=== PATIENT | male | born 1955 | race Two or more races ===

== ENCOUNTER 2017-07-17 13:43 | Inpatient (IN) | payer MEDICAID, OTHER ==
[~2017-07-17] VITALS: Ht 175.3 cm; Wt 101.6 kg
[2017-07-17] MEDS ORDERED: SODIUM CHLORIDE 0.9% 1,000 ML IV ONE ×2 (15:58)
[2017-07-17 17:31] LABS: Basophils # (auto) 0.1 uL; Basophils % (auto) 0.4 % (0.0-2.0); Eosinophils # (auto) 0 uL; Hematocrit 46.8 % (41.0-53.0); Hemoglobin 15.2 g/dL (13.5-17.5); Lymphocytes % (auto) 13.2 % (10.0-50.0); Mean Corpuscular Hemoglobin 31.2 pg (28.0-32.0); Mean Corpuscular Hgb Conc. 32.5 g/dL (32.0-36.0); Mean Corpuscular Volume 95.9 fL (80.0-100.0); Monocytes # (auto) 1.3 uL; Monocytes % (auto) 8.5 % (0.0-12.0); Neutrophils # (auto) 11.5 uL; Neutrophils % (auto) 77.9 % (37.0-80.0); Platelet Count (auto) 245 10^3/uL (140-450); Red Blood Cells 4.88 10^6/uL (4.5-5.90); Red Cell Distribution Width 13.1 % (11.8-14.3); White Blood Cell 14.8 10^3/uL (4.4-10.8)
[2017-07-17 17:44] LABS: Anion Gap 10 (5-15); Carbon Dioxide 21 mmol/L (21-32); Chloride 105 mmol/L (98-107); Potassium 3.5 mmol/L (3.5-5.1); Sodium 136 mmol/L (136-145)
[2017-07-17 17:45] LABS: Alanine Aminotransferase 37 U/L (16-61); Albumin 3.3 g/dL (3.4-5.0); Alkaline Phosphatase 123 U/L (45-117); Aspartate Aminotransferase 20 U/L (15-37); BUN/Creatinine Ratio 15.1; Bilirubin, Total 0.5 mg/dL (0.2-1.0); Blood Urea Nitrogen 14 mg/dL (7-18); GFR African American 106 mL/min; GFR Non-African American 88 mL/min; Glucose 118 mg/dL (74-106); Total Protein 7.4 g/dL (6.4-8.2)
[2017-07-17 17:46] LABS: Amylase 36 U/L (25-115); Lipase 230 U/L (73-393)
[2017-07-17 19:17] LABS: Urine Bacteria NONE SEEN /hpf (None Seen); Urine Blood Negative /uL (Negative); Urine Hyaline Cast FEW /lpf (0 - 2); Urine Mucus FEW (None Seen); Urine WBC 2 /hpf (0 - 3)
[2017-07-17] MEDS ORDERED: HYDROcodone-ACET 5/325MG TAB PO PRN (19:30)
[2017-07-17] MEDS ORDERED: ACETAMINOPHEN 325 MG TAB PO PRN (19:30)
[2017-07-17] MEDS ORDERED: TEMAZEPAM 15 MG CAP PO PRN (19:30)
[2017-07-17] MEDS ORDERED: ONDANSETRON HCL 4 MG/2 ML VIAL IV PRN (19:30)
[2017-07-17] MEDS ORDERED: ALPRAZolam 0.25 MG TAB PO PRN (19:30)
[2017-07-17] MEDS ORDERED: DEXTROSE (50%) 50ML SYRG IV PRN (19:30)
[2017-07-17] MEDS ORDERED: MORPHINE SULF INJ 2 MG/ML SYRINGE 1ML IV PRN (19:30)
[2017-07-17] MEDS ORDERED: cefTRIAXone 1GM/10ml IVPUSH 10 ML IV ONE (19:45)
[2017-07-17] MEDS: SODIUM CHLORIDE 0.9% 1,000 ML IV SCH (19:45)
[2017-07-17] MEDS ORDERED: cloNIDine HCL 0.1 MG TAB PO PRN (19:45)
[2017-07-17 19:57] LABS: Hematocrit 43.6 % (41.0-53.0); Hemoglobin 14.4 g/dL (13.5-17.5)
[2017-07-17] MEDS: InsuLIN REG 1unit/0.01ml Soln (100units/ml) SC SCH (22:00)
[2017-07-17] MEDS: ASCORBIC ACID 500 MG TAB PO SCH (22:06)
[2017-07-17] MEDS: PANTOPRAZOLE 40 MG/10 ML VIAL IV SCH (22:06)
[2017-07-17] MEDS: FAMOTIDINE 20 MG TAB PO SCH (22:06)
[2017-07-17] MEDS: ATORVASTATIN 20 MG TAB PO SCH (22:06)
[2017-07-17] MEDS: metroNIDAZOLE 500MG/100ML 100 ML IV SCH (22:06)
[2017-07-17] MEDS: ACCU-CHEK COMFORT CURVE STRIP VI SCH (22:07)
[2017-07-18] VITALS (8 sets, daily range): BP systolic 123–145; BP diastolic 69–95
[2017-07-18] MEDS ORDERED: ALPR0.25 PO (03:27)
[2017-07-18] MEDS ORDERED: METF-370 PO (03:27)
[2017-07-18] MEDS ORDERED: HYDR-3546 OR (03:27)
[2017-07-18] MEDS ORDERED: ATOR20TA PO (03:27)
[2017-07-18] MEDS ORDERED: ENA2.5T GT (03:27)
[2017-07-18] MEDS: metroNIDAZOLE 500MG/100ML 100 ML IV SCH ×3 (06:37→21:23)
[2017-07-18] MEDS: ACCU-CHEK COMFORT CURVE STRIP VI SCH ×4 (06:38→21:26)
[2017-07-18] MEDS: InsuLIN REG 1unit/0.01ml Soln (100units/ml) SC SCH ×4 (06:38→22:26)
[2017-07-18 07:00] LABS: Basophils # (auto) 0 uL; Basophils % (auto) 0.3 % (0.0-2.0); Eosinophils # (auto) 0.1 uL; Eosinophils % (auto) 0.5 % (0.0-7.0); Hematocrit 40.4 % (41.0-53.0); Hemoglobin 13.6 g/dL (13.5-17.5); Lymphocytes # (auto) 3.1 uL; Lymphocytes % (auto) 29.6 % (10.0-50.0); Mean Corpuscular Hemoglobin 31.8 pg (28.0-32.0); Mean Corpuscular Hgb Conc. 33.6 g/dL (32.0-36.0); Mean Corpuscular Volume 94.6 fL (80.0-100.0); Monocytes # (auto) 1.1 uL; Monocytes % (auto) 10.8 % (0.0-12.0); Neutrophils # (auto) 6.2 uL; Neutrophils % (auto) 58.8 % (37.0-80.0); Platelet Count (auto) 259 10^3/uL (140-450); Red Blood Cells 4.27 10^6/uL (4.5-5.90); Red Cell Distribution Width 13.1 % (11.8-14.3); White Blood Cell 10.6 10^3/uL (4.4-10.8)
[2017-07-18 07:17] LABS: INR 1.04 (0.9-1.15); Prothrombin Time 11.3 sec (9.37-12.3)
[2017-07-18 07:43] LABS: BUN/Creatinine Ratio 10.5; Potassium 4.5 mmol/L (3.5-5.1)
[2017-07-18 07:44] LABS: Albumin 2.8 g/dL (3.4-5.0); Bilirubin, Total 0.7 mg/dL (0.2-1.0); Calcium 7.7 mg/dL (8.5-10.1); Total Protein 6.3 g/dL (6.4-8.2)
[2017-07-18] MEDS: SODIUM CHLORIDE 0.9% 1,000 ML IV SCH ×3 (07:46→21:23)
[2017-07-18] MEDS: Boost Glucose Control 8 Ounces PO SCH ×3 (08:00→17:49)
[2017-07-18] MEDS: PANTOPRAZOLE 40 MG/10 ML VIAL IV SCH ×2 (10:37→21:24)
[2017-07-18] MEDS: ASCORBIC ACID 500 MG TAB PO SCH ×2 (10:37→21:24)
[2017-07-18] MEDS: cefTRIAXone 1GM/10ml IVPUSH 10 ML IV SCH (10:37)
[2017-07-18] MEDS: MULTIPLE VITAMIN TAB PO SCH (10:37)
[2017-07-18] MEDS: ENALAPRIL MALEATE 2.5 MG TAB PO SCH (10:38)
[2017-07-18] MEDS: FAMOTIDINE 20 MG TAB PO SCH (10:38)
[2017-07-18] MEDS: ZINC SULFATE 220 MG CAP PO SCH (10:38)
[2017-07-18] MEDS: ATORVASTATIN 20 MG TAB PO SCH (21:24)
[2017-07-19 05:00] VITALS: BP 131/71
[2017-07-19] MEDS: SODIUM CHLORIDE 0.9% 1,000 ML IV SCH ×3 (06:07→20:51)
[2017-07-19] MEDS: metroNIDAZOLE 500MG/100ML 100 ML IV SCH ×2 (06:07→13:55)
[2017-07-19] MEDS: InsuLIN REG 1unit/0.01ml Soln (100units/ml) SC SCH ×4 (07:00→22:00)
[2017-07-19] MEDS: ACCU-CHEK COMFORT CURVE STRIP VI SCH ×4 (07:05→23:06)
[2017-07-19 09:00] VITALS: BP 130/85
[2017-07-19] MEDS: MULTIPLE VITAMIN TAB PO SCH (10:08)
[2017-07-19] MEDS: PANTOPRAZOLE 40 MG/10 ML VIAL IV SCH ×2 (10:08→23:05)
[2017-07-19] MEDS: cefTRIAXone 1GM/10ml IVPUSH 10 ML IV SCH (10:08)
[2017-07-19] MEDS: Boost Glucose Control 8 Ounces PO SCH ×3 (10:08→17:59)
[2017-07-19] MEDS: ZINC SULFATE 220 MG CAP PO SCH (10:09)
[2017-07-19] MEDS: ASCORBIC ACID 500 MG TAB PO SCH ×2 (10:09→23:05)
[2017-07-19] MEDS: ENALAPRIL MALEATE 2.5 MG TAB PO SCH (10:09)
[2017-07-19 13:00] VITALS: BP 114/67
[2017-07-19] MEDS ORDERED: FLORASTOR (S. BOULARDII) 250 MG CAP PO ONE (15:45)
[2017-07-19 17:00] VITALS: BP 119/68
[2017-07-19 22:00] VITALS: BP 138/80
[2017-07-19] MEDS: ATORVASTATIN 20 MG TAB PO SCH (23:05)
[2017-07-20 05:00] VITALS: BP_SYST 115; BP_SYST 123; BP_DIAS 70; BP_DIAS 76
[2017-07-20] MEDS: SODIUM CHLORIDE 0.9% 1,000 ML IV SCH ×2 (05:34→14:02)
[2017-07-20] MEDS: InsuLIN REG 1unit/0.01ml Soln (100units/ml) SC SCH ×2 (05:34→11:30)
[2017-07-20] MEDS: ACCU-CHEK COMFORT CURVE STRIP VI SCH ×2 (05:34→12:52)
[2017-07-20] MEDS: Boost Glucose Control 8 Ounces PO SCH ×2 (08:00→12:51)
[2017-07-20] MEDS ORDERED: SODIUM CHLORIDE LOCK 10 ML ONE (08:08)
[2017-07-20] MEDS ORDERED: diphenhdrAMINE HCL 50 MG/1 ML VL ONE (08:09)
[2017-07-20] MEDS ORDERED: LIDOCAINE VISCOUS 2% 15ML UD ONE (08:09)
[2017-07-20] MEDS: ENALAPRIL MALEATE 2.5 MG TAB PO SCH (08:54)
[2017-07-20] MEDS: PANTOPRAZOLE 40 MG/10 ML VIAL IV SCH (08:54)
[2017-07-20 09:00] VITALS: BP 124/75
[2017-07-20] MEDS ORDERED: FLORASTOR (S. BOULARDII) 250 MG CAP PO SCH (10:00)
[2017-07-20] MEDS: fentaNYL CITRATE 100 MCG/2 ML VL ONE ×2 (10:38→10:42)
[2017-07-20] MEDS: MIDAZOLAM HCL 5 MG/ML-1ML VIAL ONE ×2 (10:38→10:42)
[2017-07-20] MEDS: ZINC SULFATE 220 MG CAP PO SCH (12:37)
[2017-07-20] MEDS: MULTIPLE VITAMIN TAB PO SCH (12:38)
[2017-07-20] MEDS: ASCORBIC ACID 500 MG TAB PO SCH (12:50)
[2017-07-20 13:00] VITALS: BP 114/73
[2017-07-20] MEDS ORDERED: PANT40T PO (13:13)
[2017-07-20 14:50] VITALS: BP 114/73
[2017-07-20] MEDS ORDERED: PANTOPRAZOLE 40 MG TAB PO SCH (22:00)
== END 2017-07-20 18:57 | disposition home or self-care (01) | DRG 470 ==
LOC: ER 13:43 → OVERFLOW 13:44 → EAST 07-18 00:51
PROVIDERS: ADMIT Internal Medicine; ATTEND Internal Medicine
PROC: 0DB68ZX Excision of Stomach, Via Natural or Artificial Opening Endoscopic, Diagnostic (ICD-10-PCS; principal; 2017-07-20 10:36)
DX: I12.9 Hypertensive chronic kidney disease with stage 1 through stage 4 chronic kidney disease, or unspecified chronic kidney disease (principal); K25.4 Chronic or unspecified gastric ulcer with hemorrhage; E44.0 Moderate protein-calorie malnutrition; K29.81 Duodenitis with bleeding; K26.4 Chronic or unspecified duodenal ulcer with hemorrhage; E11.22 Type 2 diabetes mellitus with diabetic chronic kidney disease; E78.5 Hyperlipidemia, unspecified; E86.0 Dehydration; F12.90 Cannabis use, unspecified, uncomplicated; G89.29 Other chronic pain; I25.10 Atherosclerotic heart disease of native coronary artery without angina pectoris; N18.2 Chronic kidney disease, stage 2 (mild); Z83.3 Family history of diabetes mellitus; Z68.33 Body mass index [BMI] 33.0-33.9, adult
CPT/HCPCS: 36415; 43239; 71046; 74176; 80053; 81001; 82150; 82270; 82962; 83036; 83605; 83690; 84443; 84484; 85014; 85018; 85025; 85610; 87040; 87045; 87493; 87899; 93005; 96361; 96374; C9113; J1815; J2250; J3490

== ENCOUNTER 2019-01-10 14:06 | Emergency (ER) | payer MEDICAID ==
[~2019-01-10] VITALS: Ht 175.3 cm; Wt 103.4 kg
[~2019-01-10 14:06] MED LIST: ALPR0.25 PO; ATOR20TA PO; ENA2.5T GT; HYDR-3546 OR; METF-370 PO; PANT40T PO
[2019-01-10 14:42] VITALS: BP 124/75
[2019-01-10] MEDS ORDERED: LIDOCAINE 1% HCL (LOCAL ANESTH.) INJ 20ML MDV IJ ONE (15:15)
[2019-01-10] MEDS ORDERED: TETANUS-DIPTH-ACEL PERTUSSIS 0.5ML SYRG IM ONE (15:45)
== END 2019-01-10 16:06 | disposition home or self-care (01) ==
LOC: ER 14:06
DX: S90.852A Superficial foreign body, left foot, initial encounter (principal); E11.9 Type 2 diabetes mellitus without complications; X58.XXXA Exposure to other specified factors, initial encounter; Y93.89 Activity, other specified; Y99.8 Other external cause status; Y92.89 Other specified places as the place of occurrence of the external cause
CPT/HCPCS: 90471; 90715; 99284; J2001; 10120